=== PATIENT | male | born 1990 | race Caucasian/White ===

== ENCOUNTER 2018-02-22 17:46 | Emergency (ER) | END 2018-02-22 19:41 | disposition home or self-care (01) ==

== ENCOUNTER 2019-08-02 09:53 | Emergency (ER) | payer SELFPAY ==
[~2019-08-02] VITALS: Ht 160 cm; Wt 89.0 kg
[~2019-08-02 09:53] MED LIST: HYDR-4011 PO; IBUP-1542 PO; IBUP800T48 PO; UDMYL PO
[2019-08-02 09:55] VITALS: BP 158/86; PULSE 53; RESP 18; Ht 160 cm; Wt 89.0 kg
== END 2019-08-02 12:59 | disposition left against medical advice (07) ==
LOC: FTE 09:53
DX: Z53.21 Procedure and treatment not carried out due to patient leaving prior to being seen by health care provider (principal)

== ENCOUNTER 2019-08-20 09:25 | Emergency (ER) | payer SELFPAY ==
[~2019-08-20] VITALS: Ht 175.3 cm; Wt 114.7 kg
[~2019-08-20 09:25] MED LIST changes: +BENZ-6 PO
[2019-08-20 09:31] VITALS: BP 152/68; PULSE 72; RESP 17; Ht 175.3 cm; Wt 114.7 kg
== END 2019-08-20 11:36 | disposition home or self-care (01) ==
LOC: FTE 09:25
DX: R05 Cough (principal); F17.210 Nicotine dependence, cigarettes, uncomplicated
CPT/HCPCS: 71046